=== PATIENT | male | born 1995 | race American Indian/Alaskan Native ===

== ENCOUNTER 2016-07-05 23:17 | Emergency (ER) | payer MEDICAID ==
[2016-07-06] MEDS ORDERED: TYLENOL #3 PO ONE (03:10)
--- NOTE | 2016-07-06 03:16 | Emergency Department Report ---
- General Chief Complaint: Upper Respiratory Infection Stated Complaint: SHORTNESS OF BREATH, CHEST PAIN Time Seen by Provider: 07/06/16 03:10 Source: patient Mode of arrival: Ambulatory Limitations: No Limitations - History of Present Illness Initial Comments: 20-year-old -[place] male comes in with complaint of cough 2 weeks chest tightness denies any fever states had a small knot noted at the right clavicular area for about 2 days. He reports he is bringing up greenish yellow sputum. He complains of headache diffuse chest pain with deep breathing and shortness of breathing. He is up-to-date on his vaccines he has no past medical history currently takes no medications and has no known drug allergies. MD Complaint: cough, rhinorrhea, nasal congestion - Related Data Previous Rx's Medication Instructions Recorded Last Taken Type Azithromycin [Zithromax] 250 mg PO QDAY #6 tablet 07/06/16 Unknown Rx guaiFENesin [Robitussin] 100 mg PO Q4HR PRN #120 udc 07/06/16 Unknown Rx Allergies Allergy/AdvReac Type Severity Reaction Status Date / Time No Known Allergies Allergy Verified 04/17/15 17:35 ED Review of Systems ROS: Stated complaint: SHORTNESS OF BREATH, CHEST PAIN Other details as noted in HPI Respiratory: cough, shortness of breath Cardiovascular: chest pain Endocrine: no symptoms reported Gastrointestinal: denies: abdominal pain, nausea, diarrhea Genitourinary: denies: urgency, dysuria Musculoskeletal: back pain. denies: joint swelling, arthralgia Skin: denies: rash, lesions Neurological: headache Psychiatric: denies: anxiety, depression Hematological/Lymphatic: denies: easy bleeding, easy bruising ED Past Medical Hx - Past Medical History Previous Medical History?: No - Surgical History Past Surgical History?: No - Social History Smoking Status: Former Smoker Substance Use Type: None - Medications Home Medications: Home Medications Medication Instructions Recorded Confirmed Last Taken Type Azithromycin [Zithromax] 250 mg PO QDAY #6 tablet 07/06/16 Unknown Rx guaiFENesin [Robitussin] 100 mg PO Q4HR PRN #120 udc 07/06/16 Unknown Rx ED Physical Exam - General Limitations: No Limitations General appearance: alert, in no apparent distress - Head Head exam: Present: atraumatic, normocephalic - Eye Eye exam: Present: normal appearance - ENT ENT exam: Present: normal exam, mucous membranes moist, TM's normal bilaterally - Expanded ENT Exam Expanded Teeth exam: Present: dental caries (32) - Neck Neck exam: Present: normal inspection, tenderness, lymphadenopathy ( supraclavicular adenopathy right) - Respiratory Respiratory exam: Present: rales - Cardiovascular Cardiovascular Exam: Present: regular rate - GI/Abdominal GI/Abdominal exam: Present: soft, normal bowel sounds ED Course Vital Signs 07/05/16 07/06/16 23:28 03:38 Temperature 99.8 F H Pulse Rate 88 73 Respiratory 20 18 Rate Blood Pressure 121/81 Blood Pressure 120/73 [Left] O2 Sat by Pulse 100 100 Oximetry ED Medical Decision Making - Radiology Data Radiology results: report reviewed, image reviewed Normal exam per radiologist - Medical Decision Making Patient has been evaluated by this provider fast track discussed the patient will do a x-ray of his chest Tylenol 3 for chest wall tenderness in cough suppressant. Patient verbalized understanding Critical care attestation.: If time is entered above; I have spent that time in minutes in the direct care of this critically ill patient, excluding procedure time. ED Disposition Clinical Impression: URI, acute Disposition: DISCHARGED TO HOME OR SELFCARE Is pt being admited?: No Does the pt Need Aspirin: No Condition: Stable Instructions: Upper Respiratory Infection (ED) Additional Instructions: Take Antibiotics and cough medication as prescribed follow up with her primary care provider in 3-5 days if symptoms persist or gets worse Prescriptions: Azithromycin [Zithromax] 250 mg PO QDAY #6 tablet guaiFENesin [Robitussin] 100 mg PO Q4HR PRN #120 udc PRN Reason: Cough Referrals: PRIMARY CARE [Primary Care Provider] - 3-5 Days [facility] [Provider Group] - 3-5 Days Forms: Accompanied Note, Work/School Release Form(ED)
[2016-07-06 03:39] VITALS: BP 120/73
--- NOTE | 2016-07-06 03:39 | XRay Report ---
FINAL REPORT PROCEDURE: XR CHEST ROUTINE 2V TECHNIQUE: PA and lateral chest radiographs were obtained. CPT 71876 HISTORY: sob, chest pain with deep inspirtory COMPARISON: No prior studies are available for comparison. FINDINGS: Heart: Normal. Mediastinum/Vessels: Normal. Lungs/Pleural space: Normal. Bony thorax: No acute osseous abnormality. Other: IMPRESSION: There is no evidence of an acute cardiopulmonary process.
== END 2016-07-06 04:04 | disposition home or self-care (01) ==
LOC: ED 23:17
DX: J06.9 Acute upper respiratory infection, unspecified (principal); Z87.891 Personal history of nicotine dependence
CPT/HCPCS: 71020; 93005; 93010